=== PATIENT | male | born 1975 | race Hispanic/Latino ===

== ENCOUNTER 2022-03-03 09:08 | Emergency (ER) | payer OTHER ==
[2022-03-03] MEDS ORDERED: FAMOTIDINE 20 MG/2 ML INJ IV ONE (09:28)
[2022-03-03] MEDS ORDERED: ONDANSETRON 4 MG/2 ML INJ IV ONE (09:28)
[2022-03-03] MEDS ORDERED: SODIUM CHLORIDE 0.9% 1000 ML 1,000 ML IV ONE (09:28)
[2022-03-03] MEDS ORDERED: MAGNESIUM SULFATE 2 GM/50 ML BAG IV ONE (09:29)
--- NOTE | 2022-03-03 09:33 | Emergency Department Report ---
HPI - General Chief Complaint: Medical Clearance Time Seen by Provider: 03/03/22 09:21 - [facility] HPI: Room 25 The patient is a 46-year-old male present with a chief complaint of needing medical clearance for alcohol detox. Patient has a history of heavy alcohol consumption stating he goes to approximate 3-4 bottles of wine daily. The patient went to [facility] but was found to have an elevated alcohol level and sent to the ED for medical clearance. Patient complains of hiccups since this morning and nausea without vomiting ED Past Medical Hx - Past Medical History Previous Medical History?: No - Surgical History Past Surgical History?: No Additional Surgical History: Bilateral ACL repair - Family History Family history: no significant - Social History Smoking Status: Current Some Day Smoker (Occasional cigar) Substance Use Type: None (Denies illicit drug use), Alcohol (3-4 bottles of wine daily) ED Review of Systems ROS: Stated complaint: ALCOHOL DEPENDENCY Other details as noted in HPI Constitutional: no symptoms reported Eyes: denies: eye pain ENT: denies: throat pain Respiratory: no symptoms reported Cardiovascular: denies: chest pain Endocrine: no symptoms reported Gastrointestinal: nausea, other (Hiccup). denies: vomiting Genitourinary: denies: dysuria Musculoskeletal: denies: back pain Neurological: denies: headache Physical Exam - Physical Exam Vital Signs: Vital Signs 03/03/22 09:12 Pulse Rate 111 H Respiratory 16 Rate Blood Pressure 171/98 [Left] O2 Sat by Pulse 96 Oximetry Physical Exam: GENERAL: The patient is well-developed well-nourished male lying on stretcher not appearing to be in acute distress. [] HEENT: Normocephalic. Atraumatic. Extraocular motions are intact. Patient has moist mucous membranes. NECK: Supple. Trachea midline CHEST/LUNGS: Clear to auscultation. There is no respiratory distress noted. HEART/CARDIOVASCULAR: Regular. There is tachycardia. There is no gallop rub or murmur. ABDOMEN: Abdomen is soft, nontender. Patient has normal bowel sounds. There is no abdominal distention. SKIN: There is no rash. There is no edema. There is no diaphoresis. NEURO: The patient is awake, alert, and oriented. The patient is cooperative. The patient has no focal neurologic deficits. The patient has normal speech. GCS 15 MUSCULOSKELETAL: There is no evidence of acute injury. ED Course Vital Signs 03/03/22 09:12 Pulse Rate 111 H Respiratory 16 Rate Blood Pressure 171/98 [Left] O2 Sat by Pulse 96 Oximetry Vital Signs 03/03/22 03/03/22 03/03/22 09:12 09:25 09:31 Pulse Rate 111 H 100 H 104 H Respiratory 16 12 20 Rate Blood Pressure 131/89 Blood Pressure 171/98 [Left] O2 Sat by Pulse 96 96 95 Oximetry 03/03/22 03/03/22 03/03/22 09:45 10:00 10:01 Pulse Rate 104 H 99 H Respiratory 15 14 Rate Blood Pressure 131/89 131/89 Blood Pressure [Left] O2 Sat by Pulse 98 Oximetry 03/03/22 03/03/22 10:15 10:31 Pulse Rate 96 H 100 H Respiratory 14 15 Rate Blood Pressure 131/89 131/89 Blood Pressure [Left] O2 Sat by Pulse Oximetry - Reevaluation(s) Reevaluation #1: 03/03/22 12:01 Patient clinically sober and desires to leave ED Medical Decision Making - Lab Data Result diagrams: 03/03/22 10:07 03/03/22 10:07 - Differential Diagnosis Alcoholism Critical care attestation.: If time is entered above; I have spent that time in minutes in the direct care of this critically ill patient, excluding procedure time. ED Disposition Clinical Impression: Alcoholism, Medical clearance for psychiatric admission, Transaminitis Disposition: [address] [place] [address] Is pt being admited?: No Does the pt Need Aspirin: No Condition: Stable Additional Instructions: Return to the emergency department should you develop worsening symptoms, inability to tolerate food or liquids, high fever or any other concerns Time of Disposition: 12:02 (DC to [facility])
[2022-03-03] MEDS ORDERED: LORazepam 2 MG/ML VIAL IV ONE ×2 (09:51→11:21)
[2022-03-03] MEDS ORDERED: THIAMINE 100 MG, FOLIC ACID 1 MG, MULTIPLE VITAMIN INJ, ADULT 10 ML in SODIUM CHLORIDE ... IV ONE (10:00)
[2022-03-03 10:01] VITALS: BP 131/89
[2022-03-03 10:25] LABS: Basophils % (Auto) 0.4 % (0.0-1.8); Eosinophils % (Auto) 1.1 % (0.0-4.3); Hematocrit 45.6 % (35.5-45.6); Hemoglobin 15.3 gm/dl (11.8-15.2); Lymphocytes # (Auto) 0.4 K/mm3 (1.2-5.4); Lymphocytes % (Auto) 11.6 % (13.4-35.0); Mean Corpuscular HGB Conc 34 % (32-34); Mean Corpuscular Volume 91 fl (84-94); Monocytes # (Auto) 0.3 K/mm3 (0.0-0.8); Monocytes % (Auto) 9.2 % (0.0-7.3); Platelet Count 81 K/mm3 (140-440); Red Blood Count 5.02 M/mm3 (3.65-5.03); Red Cell Distribution Width 14.3 % (13.2-15.2)
[2022-03-03 10:45] LABS: Alanine Aminotransferase 121 units/L (7-56); Albumin 4.4 g/dL (3.9-5); BUN/Creatinine Ratio 13; Blood Urea Nitrogen 10 mg/dL (9-20); Calcium 7.9 mg/dL (8.4-10.2); Hemolysis Index 5
[2022-03-03] MEDS ORDERED: METOCLOPRAMIDE 10 MG/2 ML INJ IV ONE (10:57)
[2022-03-03] MEDS ORDERED: METOCLOPRAMIDE 10 MG/2 ML INJ ONE (10:58)
[2022-03-03 11:06] LABS: Amphetamine Screen,Urine Negative; Benzodiazepines Screen,Urine Negative; Cannabinoid Screen,Urine Negative; Cocaine Screen,Urine Negative; Methadone Screen,Urine Negative; Opiate Screen,Urine Negative
[2022-03-03 11:15] LABS: Amorphous Crystals,Urine Few; Bilirubin,Urine NEG (Negative); Blood,Urine NEG (Negative); Color,Urine Straw (Yellow); Protein,Urine <15 mg/dL mg/dL (Negative); Urobilinogen,Urine < 2.0 mg/dL (<2.0); WBC,Urine < 1.0 /HPF (0.0-6.0)
[2022-03-03] MEDS ORDERED: LORazepam 2 MG/ML VIAL ONE (11:22)
[2022-03-03] MEDS ORDERED: LORazepam 2 MG/ML VIAL IV PRN ×3 (11:23)
== END 2022-03-03 12:28 ==
LOC: ED 09:08
DX: F10.20 Alcohol dependence, uncomplicated (principal); Z13.30 Encounter for screening examination for mental health and behavioral disorders, unspecified; R74.01 Elevation of levels of liver transaminase levels
CPT/HCPCS: 36415; 80053; 80307; 81001; 85025; 96365; 96366; 96368; 96375; 96376; 99284; J2060; J2405; J2765; J3411; J3475; J3490; J7030; 80320; G0480